=== PATIENT | female | born 1970 | race Caucasian/White ===

== ENCOUNTER 2016-12-14 00:13 | Emergency (ER) | payer BC ==
[2016-12-14] MEDS ORDERED: Sulfamethoxazole/Trimethoprim 800-160 MG Tab PO ONE (00:56)
[2016-12-14] MEDS ORDERED: Phenazopyridine 95 MG Tab ONE (01:01)
[2016-12-14] MEDS ORDERED: Phenazopyridine 95 MG Tab PO ONE (01:02)
[2016-12-14 07:06] VITALS: BP 126/86
--- NOTE | 2016-12-14 10:01 | ER ---
DATE SEEN: 12/14/2016 TIME SEEN: 0048 hours. CHIEF COMPLAINT: Dysuria, frequency, urgency. Last urinary tract infection was in July. She had onset of symptoms tonight. She has frequency, urgency, and dysuria. Denies fever, chills, back pain, or pyelonephritis. No previous pelvic surgery. No . She denies vaginal discharge. PHYSICAL EXAMINATION: LUNGS: Clear. HEART: Without murmur. HEENT: Pharynx without abnormality. ABDOMEN: Soft. No guarding. No abdominal discomfort. Mild suprapubic discomfort. No CVA percussion tenderness. PELVIC: Not performed. LOWER EXTREMITIES: Negative. LABORATORY DATA: UA positive for nitrite, bilirubin [QAMARKER] leukocyte esterase large, wbc's 50-75, 20-30 rbc's, moderate bacteriuria, 500 protein. ASSESSMENT: Urinary tract infection. PLAN: Treat with Septra DS one b.i.d. for 3 days. Pyridium 200 mg one t.i.d. for a total of 6 tablets. Followup with a doctor in a week or earlier if not improved, otherwise, as needed. /[id number] RAÚL/CLARISA
== END 2016-12-14 01:15 | disposition home or self-care (01) ==
LOC: FB.ED 00:13
DX: N39.0 Urinary tract infection, site not specified (principal)
CPT/HCPCS: 81001; 87086; 87088; 87186; 99283; A9270